=== PATIENT | female | born 1985 | race Caucasian/White ===

== ENCOUNTER 2017-10-11 10:28 | Inpatient (IN) ==
[2017-10-11] MEDS ORDERED: MORPHINE SULFATE 4mg INJECTION IVP PRN (10:55)
[2017-10-11] MEDS: NS 1,000 ML IV SCH ×2 (11:46→18:22)
[2017-10-11] MEDS: ONDANSETRON 4 MG/2 ML INJECTION IVP PRN ×2 (11:58→21:49)
[2017-10-11] MEDS ORDERED: HYDROMORPHONE 2 MG/ML INJECTION IVP PRN (12:07)
--- NOTE | 2017-10-11 12:24 | History & Physical Report ---
History of Present Illness Date: 10/11/17 Chief complaint: severe headache HPI: Didi Blackburn is a 32-year-old female who is directly admitted from Dr. Stern's office for severe headache. While she has a history of migraines, this headache is not comparable to her typical migraine. She also was recently diagnosed with Chiari malformation 1, and had a DOOR CUTTER shunt placed on August [address] Burns. She states that she woke up from a nap at 1530 yesterday with severe headache, describing it as "I can feel my brain pulsating". Primarily her pain is located on right, and she also notes some stabbing pains. She denies photophobia but prefers dim lights. Denies nausea/vomiting. Headache pain woke her up from sleep at 0430 this am and she felt slightly off balance. She's been having low-grade fevers (had high fevers up to 104 before ). She complains of neck pain, which worsens with movement. She has had mild muscle aches. No acute visual changes, paresthesias or unilateral weakness but legs feel restless and achy. She has had diarrhea for the last 3-4 days, about 4 bowel movements per day. She was actually diagnosed with left sided pneumonia on , and received a shot of Rocephin in the emergency department followed by a Z-Mauricio prescription. Her symptoms were slow to improve, and she saw Dr. Zamorano on October 06, at which time her antibiotics were changed to Augmentin. Coughing improving but when she does this creates more of a headache. Her cough is shallow, and she can become SOA in a coughing fit. She's been having abdominal pain, in early September she had LLQ pain reminiscent of cystic pain; but the pain migrated up to the right and left quadrant. She was dx with rt ovarian cyst and f/u with Dr. Morales felt her pain was d/t interior muscle weakness and prescribed PT/OT. Then, after this she developed left shoulder/axillary//left rib/LUQ pain which is when she was dx with PNA. She also notes runny nose but denies a sore throat. Review of Systems All systems PM: 10-point ROS was reviewed, no additional remarkable complaints except - Constitutional Constitutional: Present: as per HPI - EENMT Eyes: Present: as per HPI Balance: Present: as per HPI Nose: Present: as per HPI Mouth/Throat: Present: as per HPI - Cardiovascular Cardiovascular: Present: as per HPI Vascular: Absent: pedal edema - Respiratory Respiratory: Present: as per HPI - Gastrointestinal Gastrointestinal: Present: as per HPI - Genitourinary Genitourinary: Present: as per HPI. Absent: dysuria - Musculoskeletal Musculoskeletal: Present: as per HPI - Integumentary/Breasts Integumentary: Absent: rash, wounds - Neurological Neurological: Present: as per HPI - Psychiatric Psychiatric: Absent: anxiety - Endocrine Endocrine: Absent: palpitations - Hematologic/Lymphatic Hematologic/Lymphatic: Absent: easy bleeding, easy bruising - Allergic/Immunologic Allergic/Immunologic: Absent: urticaria Past Medical History Migraine Chiari malformation I PCOS Infertility Obesity, BMI 39.4 History of viral meningitis Surgical History: DOOR CUTTER shunt 08/22/17 Dr. Burns. sinus surgery. breast reduction. multiple ovarian cysts removed. cholecystectomy. appendenctomy. IVF x 2. urethral dilitations Family History Updates: Mother - breast cancer. Father - prostate cancer, HTN. Brother - healthy. PGM - COPD, CAD; around age 76. PGF - CAD; at age 60-61 of [place]. MGM - of CAD at age 77. 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 Medications Home Medications Medication Instructions Recorded Confirmed Type Hydrocodone/Acetaminophen 1 tab PO QID PRN 10/03/17 10/11/17 History [Hydrocodon-Acetaminophen 5-325] Albuterol Sulfate [Proair Hfa] 2 puff INH Q6H PRN 10/11/17 10/11/17 History Amoxicillin/Potassium Clav 1 each PO Q12H 10/11/17 10/11/17 History [Augmentin 875-125 Tablet] Guaifenesin/P-Ephed 600/60 Tab 1 tab PO Q12HR 10/11/17 10/11/17 History [Mucinex D] Allergies Allergy/AdvReac Type Severity Reaction Status Date / Time erythromycin base Allergy Unknown VOMIT Verified 10/11/17 11:54 exenatide Allergy Unknown MIGRAINES Verified 10/11/17 11:54 Sulfa (Sulfonamide Allergy Unknown HIVES Verified 10/11/17 11:54 Antibiotics) Exam Vital Signs: Temperature 96.7 F L 10/11/17 11:22 Pulse Rate 98 10/11/17 11:22 Respiratory Rate 12 10/11/17 11:22 Blood Pressure 146/81 H 10/11/17 11:22 Pulse Oximetry 97 10/11/17 11:22 Height/Weight/BMI: Height 1.65 m Weight 107.5 kg Body Mass Index 39.4 - Constitutional Present: no acute distress, mild distress (at times she closes her eyes in pain) , well nourished, well developed, obese - Routine HEENT Exam Head: Present: normocephalic Eye: Present: EOMI, PERRL. Absent: conjunctival icterus, scleral injection ENT: Present: mucous membranes moist - Routine Neck Exam Present: supple. Absent: lymphadenopathy Comments: complains of neck pain with rotation/flexion - Routine Respiratory Exam Present: decreased breath sounds (LLL) - Routine Cardiovascular Exam Present: RRR, S1, S2 - Routine Abdominal Exam Present: soft, normoactive bowel sounds, non distended, non tender - Routine Extremities Exam Present: edema, pulses intact, normal capillary refill - Routine Skin Exam Present: intact, dry, warm - Routine Neurological Exam Present: alert, oriented X3, CN II-XII intact, moving all extremities, vision grossly intact, hearing grossly intact, normal speech. Absent: sensory deficit , motor deficit, facial asymmetry - Routine Psychiatric Exam Present: normal affect, normal thought process, cooperative Results - Labs CBC & Chem 7: 10/11/17 12:53 10/11/17 12:53 - Imaging and Cardiology Chest x-ray Status: image reviewed by me (LLL pneumonia) Assessment and Plan (1) Headache Current visit: Yes Status: Acute Assessment and Plan: IMPRESSION Severe headache Leukocytosis (15.2), elevated CRP (155) - POA Thrombocytosis - POA LLL pneumonia, failed outpatient treatment, treated with Rocephin x1 day, Z-pack , then Augmentin x 5 days Diarrhea Transaminitis Chiari malformation I, s/p DOOR CUTTER shunt placement 08/22/[address] Burns PLAN Admit, observation status, under the hospitalist service. Work up for shunt malfunction, meningitis. Check to see if radiology can obtain CSF during shuntogram. Check GI panel. She's at risk for C. difficile. CXR continues to show pneumonia and pt continues to have sx: Consider treatment for HCAP. Viral respiratory panel was negative. Start Pulmicort for inflammation, Albuterol. IVF: NS at 150 ml/hr. Pain mgt: No effect with Morphine 4 mg and Dilaudid 0.5 mg (pain still 10/10). Try Toradol; increase Dilaudid to 1 mg. Discussed with RN and with Dr. Cummins. Maria G Shuntogram showing Obstruction of the tip of the DOOR CUTTER shunt catheter could be due to adhesions or CSF pseudocyst. Discussed with Dr Burns - with her abnormality, she is dependent of shunt function to decrease pain - does worry about possible BODY SANDER infection, especially in light of her recent pneumonia. After I finished discussing case with Dr Burns, lab did call reporting gram positive cocci in clusters in CSF fluid. Initiate Rocephin 2 grams IV daily for coverage. Change admission status to inpatient due to meningitis Assessment - as above with Meningitis - GP cocci in CSF Obstruction of the tip of the DOOR CUTTER shunt catheter could be due to adhesions or CSF pseudocyst. DVT Prophylaxis: SCD's Resuscitation Status: Full Code - Time spent with patient Time with patient PN: 70 minutes - Physician Narrative Physician: Hernando Cummins MD Narrative: Date: 10/11/17 Time: 1720 Have independently interviewed and examined pt. Chart reviewed. Case discussed with Dr Stern, Dr Burns, and my FOREST PRODUCTS GATHERER. Care plan developed with my supervision; agree with above. Work up yesterday with severe headache-throbbing/pounding in nature. Meds at home not helping. Denies photophobia, ear pain/ringing, but does note neck more stiff and sore, hurts to move. Mild nausea. Feels hot and then cold-cannot find comfortable temperature. Breathing has been doing well. Not feeling SOA or congested. Does have minor cough, but cough severely exacerbates her headache. Loose stools over past several days since on antibiotics. No ab pain. Decreased urine output today. Lungs: clear CV: tachy, regular AB: soft nt/nd +BS. Neuro: CN II-XII intact. MSE: awake alert appropriate Assessment - as above with Meningitis - GP cocci in CSF Obstruction of the tip of the DOOR CUTTER shunt catheter could be due to adhesions or CSF pseudocyst. Plan: OBS for pain control. Finding of obstruction of the tip of the DOOR CUTTER shunt catheter could be due to adhesions or CSF pseudocyst-discussed with neurosurgery and does not need urgent transfer to treatment of that process. However, micro is showing gram positive cocci in clusters from CSF. Will initial Rocephin 2gram IV daily for coverage. With this finding, will change admission status to inpatient as anticipate greater than 2 midnight of care needed. Continue to work on pain control - Dilaudid doing more for pain than MS and causing less nausea. Will have IV Toradol and oral [place] 10 available as needed as well. Hospital Course Summary Disclaimer: The visit summary below is not to be considered part of the above Progress Note. Hospital Course: 10/11/17: Admitted to observation status for severe headache and failed outpatient treatment of pneumonia. Shuntogram and CSF studies ordered. WBC elevated at 15.2; platelets 794; CRP 155.
--- NOTE | 2017-10-11 12:36 | XRay Report ---
Indication: FOR NM SHUNT SERIES PROCEDURE: XR skull <4V: Encounter: Initial Comparison: None Findings/ Impression: AP and lateral views of the skull show a right parietal approach ventriculostomy catheter with the tip terminating in the midline. No acute calvarial fracture. No definite catheter fracture or discontinuity. .
--- NOTE | 2017-10-11 12:39 | XRay Report ---
INDICATION: Pneumonia PROCEDURE: CHEST 2-VIEWS UPRIGHT (PA & LAT) Encounter: Initial COMPARISON: October 03, 2017 FINDINGS: Persistent left lower lobe consolidation that is slightly improved with a small stable left effusion. Right lung is clear. No pneumothorax. Right sided RECORD PRESS OPERATOR shunt catheter tubing appears intact. Cholecystectomy clips. The heart size, mediastinal contours and pulmonary vascularity are within normal limits. There is no significant skeletal abnormality. IMPRESSION: Slight improvement in left lower lobe pneumonia with persistent small effusion. .
--- NOTE | 2017-10-11 12:40 | XRay Report ---
Indication: FOR NM SHUNT SERIES PROCEDURE: XR abdomen 2V: Encounter: Initial Comparison: None Findings: The patient catheter tubing loops in the abdomen the tip terminating in the midline projecting over the L4 vertebra. No obvious catheter fracture. Bowel gas pattern is nonobstructive and nonspecific. Cholecystectomy clips. Impression: No evidence of catheter fracture. .
[2017-10-11] MEDS ORDERED: KETOROLAC 30 MG/ML INJECTION IVP ONE (13:09)
[2017-10-11] MEDS ORDERED: PROMETHAZINE/CODEINE ORAL LIQUID 5ml PO PRN (14:06)
[2017-10-11] MEDS: HYDROMORPHONE 2 MG/ML INJECTION IVP PRN ×3 (14:56→20:18)
[2017-10-11] MEDS: ALBUTEROL 2.5mg/3ml (0.083%) NEB AEROSOL SCH ×2 (15:00→19:35)
[2017-10-11] MEDS ORDERED: SALINE FLUSH 10ml SYRINGE ONE (15:33)
--- NOTE | 2017-10-11 16:30 | Nuclear Medicine Report ---
Indication: PAGE, dizziness PROCEDURE: NM shuntogram: Encounter: Initial Comparison: None Technique/findings: The patient's BULK DELIVERY DRIVER shunt reservoir was sterilely accessed with 4 mL of clear, colorless CSF fluid removed and sent to the laboratory for diagnostic evaluation. Next 486 uCi of technetium 99m DTPA was instilled into the reservoir followed by anterior and posterior planar gamma camera imaging. This showed prompt progression of tracer distally through the BULK DELIVERY DRIVER shunt catheter into the pelvis where tracer activity accumulates around the tip of the catheter. Tracer did not freely spill into the peritoneal cavity on delayed imaging. Impression: Obstruction of the tip of the BULK DELIVERY DRIVER shunt catheter could be due to adhesions or CSF pseudocyst. .
[2017-10-11] MEDS ORDERED: CEFTRIAXONE 2 GM INJECTION IM SCH (16:45)
[2017-10-11] MEDS ORDERED: CEFTRIAXONE 2 GM in NS 100 ML IV SCH (17:00)
[2017-10-11] MEDS: CEFTRIAXONE 2 GM INJECTION IV SCH ×2 (17:00→17:35)
[2017-10-11] MEDS ORDERED: ACETAMINOPHEN 325 MG TABLET PO PRN (17:13)
[2017-10-11] MEDS ORDERED: PROCHLORPERAZINE 10 MG/2 ML INJECTION IVP PRN (17:15)
[2017-10-11] MEDS: HYDROCODONE/APAP 10 MG/325 MG TABLET PO PRN (17:52)
[2017-10-11] MEDS: KETOROLAC 15 MG/ML INJECTION IVP PRN (17:53)
[2017-10-11] MEDS: BUDESONIDE INH.SOLN 0.5mg/2ml NEB AEROSOL SCH (19:35)
[2017-10-11] MEDS: GUAIFENESIN/D-METHORPHAN 600mg/30mg TABLET PO SCH (21:50)
[2017-10-12] MEDS: KETOROLAC 15 MG/ML INJECTION IVP PRN ×2 (00:21→08:36)
[2017-10-12] MEDS: HYDROMORPHONE 2 MG/ML INJECTION IVP PRN ×2 (00:22→08:35)
[2017-10-12] MEDS: NS 1,000 ML IV SCH ×2 (01:16→08:27)
[2017-10-12] MEDS: HYDROCODONE/APAP 10 MG/325 MG TABLET PO PRN ×2 (04:08→11:33)
[2017-10-12] MEDS: ALBUTEROL 2.5mg/3ml (0.083%) NEB AEROSOL SCH ×2 (07:51→10:54)
[2017-10-12] MEDS: BUDESONIDE INH.SOLN 0.5mg/2ml NEB AEROSOL SCH (07:51)
[2017-10-12 08:16] VITALS: BP 128/76; PULSE 76; TEMP 96.7
[2017-10-12] MEDS: GUAIFENESIN/D-METHORPHAN 600mg/30mg TABLET PO SCH (08:27)
--- NOTE | 2017-10-12 10:47 | Progress Note ---
- Date 10/12/17 Subjective: Patient says she feels the same. Headache continues. Says she is coughing less. Denies weakness, numbness, vision changes. Ambulates in room. Says she is not voiding as often as she would expect. Objective Vital signs: Temperature 96.7 F L 10/12/17 08:14 Pulse Rate 76 10/12/17 08:14 Respiratory Rate 20 10/12/17 08:14 Blood Pressure 128/76 10/12/17 08:14 Pulse Oximetry 96 10/12/17 08:14 Height/Weight/BMI: Height 5 ft 5 in Weight 111.3 kg Body Mass Index 39.4 - Constitutional Present: no acute distress - Routine HEENT Exam Head: Present: normocephalic Eye: Present: EOMI ENT: Present: mucous membranes moist - Routine Respiratory Exam Present: CTA bilaterally - Routine Cardiovascular Exam Present: RRR, no murmur - Routine Abdominal Exam Present: soft, normoactive bowel sounds - Routine Extremities Exam Present: no edema - Routine Neurological Exam Present: alert, oriented X3, CN II-XII intact, moving all extremities Results - Labs CBC & Chem 7: 10/12/17 04:29 10/12/17 04:29 Microbiology Results: Microbiology 10/11/17 15:37 Csf, Shunt Gram Stain - Final 10/11/17 15:37 Csf, Shunt CSF Culture - Preliminary Culture Initiated - Results Pending 10/11/17 12:53 Peripheral/Iv Start Blood Culture - Preliminary Culture Initiated - Results Pending 10/11/17 13:03 Peripheral/Iv Start Blood Culture - Preliminary Culture Initiated - Results Pending Assessment and Plan (1) Headache Current visit: Yes Status: Acute Assessment and Plan: IMPRESSION TANDEM MILL OPERATOR shunt infection Severe headache Leukocytosis (15.2), elevated CRP (155) - POA Thrombocytosis - POA LLL pneumonia, failed outpatient treatment, treated with Rocephin x1 day, Z-pack , then Augmentin x 5 days Diarrhea Transaminitis Chiari malformation I, s/p TANDEM MILL OPERATOR shunt placement 08/22/[address] Burns PLAN Discussed with Dr Burns - with infection, he would like her transferred so shunt may be removed. With GPC in clusters, will give 1 dose of vanco before transfer. GI panel pending d/t no stool. She's at risk for C. difficile. CXR shows slow improvement of PNA. Viral respiratory panel was negative. Started Pulmicort for inflammation, Albuterol. IVF: NS at 150 ml/hr. Check bladder scan Pain mgt: No effect with Morphine 4 mg and Dilaudid 0.5 mg (pain still 10/10). Try Toradol; increased Dilaudid to 1 mg. - Physician Narrative Narrative: Date: 10/12/17 Time: 1043 Hospital Course Summary Disclaimer: The visit summary below is not to be considered part of the above Progress Note. Hospital Course: 10/11/17: Admitted to observation status for severe headache and failed outpatient treatment of pneumonia. Shuntogram and CSF studies ordered. WBC elevated at 15.2; platelets 794; CRP 155. 10/12/17 10:[address] Burns - with infection, he would like her transferred so shunt may be removed. With GPC in clusters, will give 1 dose of vanco before transfer. GI panel pending d/t no stool. She's at risk for C. difficile. CXR shows slow improvement of PNA. Viral respiratory panel was negative. Started Pulmicort for inflammation, Albuterol. IVF: NS at 150 ml/hr. Check bladder scan Pain mgt: No effect with Morphine 4 mg and Dilaudid 0.5 mg (pain still 10/10). Try Toradol; increased Dilaudid to 1 mg.
[2017-10-12 10:58] VITALS: RESP 16; O2SAT 97
--- NOTE | 2017-10-12 11:37 | Pharmacy Consult-Antibiotics ---
Pharmacy Consult-Vancomycin - Laboratory Information WBC 12.7 T/MM3 (4.5-11.0) H 10/12/17 04:29 BUN 9.0 MG/DL (7-17) 10/12/17 04:29 Creatinine 0.7 MG/DL (0.7-1.2) 10/12/17 04:29 Procalcitonin < 0.05 NG/ML 10/11/17 12:53 - Consult Information Vancomycin consult noted by Dr. Rosas for Ms Blackburn, who is a 32 year old female, 111.3kg, with possible pneumonia. She also has a positive micro report for gram positive clusters from her CSF shunt. Will begin vancomycin 2 grams IV q8h and continue to monitor. Thank you.
[2017-10-12] MEDS: ONDANSETRON 4 MG/2 ML INJECTION IVP PRN (12:19)
--- NOTE | 2017-10-12 13:15 | Discharge Summary ---
Discharge Information Date of admission: 10/11/17 18:01 Attending Physician: Gregorio Rosas IV, MD Primary care physician: Kelsy Stern MD - Discharge Diagnosis (1) Headache Status: Acute - Laboratory Labs: 10/12/17 04:29 10/12/17 04:29 - Microbiology Microbiology 10/11/17 13:03 Peripheral/Iv Start Blood Culture - Preliminary No Growth After 1 Day 10/11/17 12:53 Peripheral/Iv Start Blood Culture - Preliminary No Growth After 1 Day 10/11/17 15:37 Csf, Shunt Gram Stain - Final 10/11/17 15:37 Csf, Shunt CSF Culture - Preliminary Culture Initiated - Results Pending History of Present Illness HPI: Didi Blackburn is a 32-year-old female who is directly admitted from Dr. Stern's office for severe headache. While she has a history of migraines, this headache is not comparable to her typical migraine. She also was recently diagnosed with Chiari malformation 1, and had a LEASE OPERATOR shunt placed on August [address] Burns. She states that she woke up from a nap at 1530 yesterday with severe headache, describing it as "I can feel my brain pulsating". Primarily her pain is located on right, and she also notes some stabbing pains. She denies photophobia but prefers dim lights. Denies nausea/vomiting. Headache pain woke her up from sleep at 0430 this am and she felt slightly off balance. She's been having low-grade fevers (had high fevers up to 104 before ). She complains of neck pain, which worsens with movement. She has had mild muscle aches. No acute visual changes, paresthesias or unilateral weakness but legs feel restless and achy. She has had diarrhea for the last 3-4 days, about 4 bowel movements per day. She was actually diagnosed with left sided pneumonia on , and received a shot of Rocephin in the emergency department followed by a Z-Mauricio prescription. Her symptoms were slow to improve, and she saw Dr. Zamorano on October 06, at which time her antibiotics were changed to Augmentin. Coughing improving but when she does this creates more of a headache. Her cough is shallow, and she can become SOA in a coughing fit. She's been having abdominal pain, in early September she had LLQ pain reminiscent of cystic pain; but the pain migrated up to the right and left quadrant. She was dx with rt ovarian cyst and f/u with Dr. Morales felt her pain was d/t interior muscle weakness and prescribed PT/OT. Then, after this she developed left shoulder/axillary//left rib/LUQ pain which is when she was dx with PNA. She also notes runny nose but denies a sore throat. Objective Vital signs: Temperature 96.7 F L 10/12/17 08:14 Pulse Rate 76 10/12/17 08:14 Respiratory Rate 16 10/12/17 10:55 Blood Pressure 128/76 10/12/17 08:14 Pulse Oximetry 97 10/12/17 10:55 Height/Weight/BMI: Height 5 ft 5 in Weight 111.3 kg Body Mass Index 39.4 - Constitutional Present: no acute distress - Routine HEENT Exam Head: Present: normocephalic Eye: Present: EOMI ENT: Present: mucous membranes moist - Routine Respiratory Exam Present: CTA bilaterally - Routine Cardiovascular Exam Present: RRR - Routine Abdominal Exam Present: soft, normoactive bowel sounds, non distended, non tender Hospital Course This is a general summary of the patient's hospital course. For more details refer to the complete medical record. Hospital course: 10/11/17: Admitted to observation status for severe headache and failed outpatient treatment of pneumonia. Shuntogram and CSF studies ordered. WBC elevated at 15.2; platelets 794; CRP 155. Shuntogram showed obstruction of LEASE OPERATOR shunt catheter. CSF studies show gram positive cocci in clusters. Rocephin was started on admission. Vanco was initiated. Case d/w Dr. Burns who requested patient be transferred so shunt could be removed. Patient's headache continues to be severe. She has no focal deficits. Dr. Lynch has accepted the patient at [facility]. Discharge Plan - Discharge Disposition Disposition: To [facility] Acute Care *Condition: Stable Reason For Visit (Visit label in EMR): headache, cough, poss pneumonia - Discharge Medications *Discharge Medications: No Action Hydrocodone/Acetaminophen [Hydrocodon-Acetaminophen 5-325] 1 tab PO QID PRN PRN Reason: Pain Guaifenesin/P-Ephed 600/60 Tab [Mucinex D] 1 tab PO Q12HR Amoxicillin/Potassium Clav [Augmentin 875-125 Tablet] 1 each PO Q12H Albuterol Sulfate [Proair Hfa] 2 puff INH Q6H PRN PRN Reason: Shortness Of Air/Wheezing - Discharge Packet/Instructions *Diet: regular - Referrals/Follow Up - Patient Handouts Physician Narrative - Narrative Attestation Narrative: Date: 10/12/17 Time: 2583
[2017-10-12 14:41] VITALS: BMI 40.8
== END 2017-10-12 14:30 | disposition short-term general hospital (02) | DRG 94 ==
LOC: MED → SUATTDRO 18:01
PROVIDERS: ADMIT Hospitalist; ATTEND Hospitalist